=== PATIENT | female | born 1965 ===

== ENCOUNTER 2019-01-23 07:04 | Day surgery (SDC) | payer OTHER ==
[2019-01-23 07:23] VITALS: BMI 30.2
[2019-01-23] MEDS ORDERED: Propofol 10 mg/ml Inj (20 ML) ONE (08:01)
--- NOTE | 2019-01-23 08:02 | CP.SDSHP ---
Same Day Surgery H & P - History Proposed Procedure: EGD Pre-Op Diagnosis: SEE NOTES - Previous Medical/Surgical History Cardiac: Hypertension Endocrine/Metabolic: Diabetes, Other Neuro: Other Misc: Other Pain: 4.Moderate Pain Previous Surgical History: PSORIASIS / HEAD INJ. - Allergies Allergies: Allergies FISH Allergy (Verified 11/23/15 13:18) RASH Penicillins Allergy (Verified 11/23/15 13:18) RASH seafood Allergy (Uncoded 01/23/19 07:38) RASH - Physical Exam General Appearance: N Vital Signs: Vital Signs 01/23/19 07:39 Temperature 97.3 F L Pulse Rate 60 Respiratory 18 Rate Blood Pressure 117/71 O2 Sat by Pulse 100 Oximetry Mental Status: Alert & Oriented x3 Neuro: WNL Heart: Other Lungs: WNL GI: Other - {Optional Preform as Required} Breast: WNL Abdomen: Other Rectal: Other Integument: WNL : WNL Ortho: Other ENT: WNL - Impression Pt. Evaluated Today:Candidate for Anesthesia & Procedure: Yes - Date & Time Time: 08:01 Short Stay Discharge - Short Stay Discharge Admitting Diagnosis/Reason for Visit: GASTRIC ULCER Disposition: HOME/ ROUTINE
[2019-01-23 08:23] VITALS: TEMP 98
[2019-01-23] MEDS ORDERED: Lidocaine Hydrochloride 5 ML INJ ONE (08:24)
[2019-01-23] MEDS ORDERED: Belladonna-Phenobarbital PO ONE (08:25)
[2019-01-23 08:32] VITALS: O2SAT 100
[2019-01-23 09:20] VITALS: BP 116/65; PULSE 68; RESP 19
== END 2019-01-23 09:16 | disposition home or self-care (01) ==
LOC: C.ENDO 07:04
PROVIDERS: ATTEND Specialist
DX: K25.9 Gastric ulcer, unspecified as acute or chronic, without hemorrhage or perforation (principal); K44.9 Diaphragmatic hernia without obstruction or gangrene
CPT/HCPCS: 43239; 82948; 84703; 88305; 88342; J2704